=== PATIENT | male | born 1975 | race Caucasian/White ===

== ENCOUNTER 2024-10-24 08:40 | Day surgery (SDC) | payer MEDICAID ==
[~2024-10-24] VITALS: Ht 180.3 cm; Wt 89.6 kg
[2024-10-24] VITALS (11 sets, daily range): BP systolic 107–130; BP diastolic 59–84; PULSE 65–84; RESP 11–15; TEMP 98.2; O2SAT 92–99
[2024-10-24] MEDS ORDERED: nitroGLYCERIN 0.4mg SUBLingual tab SL PRN (08:55)
[2024-10-24] MEDS ORDERED: ASPI-611 PO (09:31)
[2024-10-24] MEDS ORDERED: ATOR20TA66 PO (09:31)
[2024-10-24] MEDS ORDERED: NITR0.4T48 SL (09:31)
[2024-10-24] MEDS ORDERED: BUPR-564 PO (09:31)
[2024-10-24] MEDS ORDERED: SERT-432 PO (09:31)
[2024-10-24] MEDS ORDERED: LISI5TAB22 PO (09:31)
[2024-10-24 09:40] LABS: BASOPHILS % (AUTO) 0.9 % (0-1); EOSINOPHILS # (AUTO) 0.2 X10'3 (0-0.9); HEMATOCRIT 46.2 % (42.0-52.0); HEMOGLOBIN 15.9 g/dl (14.0-17.9); LYMPHOCYTES # (AUTO) 2.1 X10'3 (1.1-4.8); LYMPHOCYTES % (AUTO) 36.6 % (21-51); MEAN CORPUSCULAR HEMOGLOBIN 30.9 PG (27.0-31.0); MEAN CORPUSCULAR HGB CONC 34.4 g/dL (33.0-36.5); MEAN CORPUSCULAR VOLUME 89.7 FL (78-98); MEAN PLATELET VOLUME 7.6 FL (7.4-10.4); MONOCYTES # (AUTO) 0.4 X10'3 (0-0.9); MONOCYTES % (AUTO) 6.5 % (2-12); PLATELET COUNT 224 X10'3 (140-440); RED BLOOD COUNT 5.15 X10'6 (4.70-6.10); RED CELL DISTRIBUTION WIDTH 13.8 % (11.5-14.5); WHITE BLOOD COUNT 5.7 X10'3 (4.5-11.0)
[2024-10-24 09:53] LABS: ALBUMIN 3.8 G/DL (3.4-5.0); ANION GAP 6 (8-16); BLOOD UREA NITROGEN 14 MG/DL (7-18); BUN/CREATININE RATIO 12.8 (10.0-20.0); CALCIUM 8.5 MG/DL (8.5-10.1); CHLORIDE 109 MMOL/L (99-107); CREATININE 1.09 MG/DL (0.60-1.10); GLUCOSE 91 MG/DL (70-104); POTASSIUM 4.3 MMOL/L (3.5-5.1); SODIUM 141 MMOL/L (135-145); TOTAL CARBON DIOXIDE 26.1 MMOL/L (24-32); eCRCL 89 ML/MIN; eGFR 73 ML/MIN
[2024-10-24] MEDS: diphenhydrAMINE 25mg capsule PO PRN (09:53)
[2024-10-24] MEDS: LORazepam 0.5 MG tablet PO PRN (09:53)
[2024-10-24 09:54] LABS: APTT 27 SECONDS (22-32); PROTHROMBIN TIME 10.5 SECONDS (9.0-12.0)
[2024-10-24] MEDS: normal saline 1,000 ML IV SCH (09:54)
[2024-10-24] MEDS ORDERED: midazolam 1 mg/ML 2ml injection ONE (10:14)
[2024-10-24] MEDS ORDERED: fentaNYL/PF 50MCG/1 ML 2ML syringe ONE (10:14)
[2024-10-24] MEDS ORDERED: iohexol 350MG/ML 100ml bottle IV ONE (10:14)
[2024-10-24] MEDS ORDERED: iohexol 350 MG/ML 50ML vial IV ONE (10:14)
[2024-10-24] MEDS ORDERED: LIDOcaine 1% 30ml preserv. free vial ONE (10:14)
[2024-10-24] MEDS ORDERED: proCHLORperazine 10 MG/2 ml inj IV PRN (12:40)
[2024-10-24] MEDS ORDERED: HYDROcodone/acetaminophen 5mg/325mg tablet PO PRN (12:40)
[2024-10-24] MEDS ORDERED: HYDROcodone/acetaminophen 10/325mg tab PO PRN (12:40)
[2024-10-24] MEDS ORDERED: OXAZEpam 15mg capsule PO PRN (12:40)
[2024-10-24] MEDS ORDERED: normal saline 1000ml 1,000 ML IV SCH (12:40)
[2024-10-24] MEDS ORDERED: ondansetron/PF 4mg/2ml inj IV PRN (12:40)
== END 2024-10-24 18:00 | disposition home or self-care (01) ==
LOC: SSTAY O 08:40
PROVIDERS: ATTEND Internal Medicine Cardiovascular Disease
DX: R94.39 Abnormal result of other cardiovascular function study (principal); I42.9 Cardiomyopathy, unspecified; I27.20 Pulmonary hypertension, unspecified; Z79.01 Long term (current) use of anticoagulants; Z79.82 Long term (current) use of aspirin
CPT/HCPCS: 36415; 71046; 80048; 85025; 85610; 85730; 93005; 93460; 99152; 99153; C1760; J1644; J2003; J2250; J3010; J7030; Q0163; Q9967; A6258; C1725; C1751; C1769; C1894